=== PATIENT | male | born 1970 | race African-American/Black ===

== ENCOUNTER 2018-08-23 12:09 | Emergency (ER) | payer OTHER ==
[~2018-08-23] VITALS: Ht 160 cm; Wt 72.6 kg
[2018-08-23 12:20] VITALS: BP 130/66; TEMP 97.9
== END 2018-08-23 14:44 | disposition home or self-care (01) ==
LOC: ED 12:09
PROC: 2W3CX1Z Immobilization of Right Lower Arm using Splint (ICD-10-PCS; principal; 2018-08-23)
DX: S52.501A Unspecified fracture of the lower end of right radius, initial encounter for closed fracture (principal); W01.198A Fall on same level from slipping, tripping and stumbling with subsequent striking against other object, initial encounter
CPT/HCPCS: 99283

== ENCOUNTER 2018-12-04 20:21 | Emergency (ER) | payer OTHER ==
[~2018-12-04] VITALS: Ht 160 cm; Wt 79.4 kg
[2018-12-04 21:35] VITALS: BP 136/71; TEMP 98.1
== END 2018-12-04 21:35 | disposition home or self-care (01) ==
LOC: ED 20:21
DX: S20.211A Contusion of right front wall of thorax, initial encounter (principal); W16.212A Fall in (into) filled bathtub causing other injury, initial encounter; Y93.89 Activity, other specified; Y92.89 Other specified places as the place of occurrence of the external cause
CPT/HCPCS: 96372; 99282; 99283; J1885